=== PATIENT | female | born 1945 | race Hispanic/Latino ===

== ENCOUNTER → 2019-09-22 | Outpatient (CLI) | payer OTHER ==
[~2019-09-22] MED LIST: ASPI-1012 PO; Acetaminophen PO; CELE200 PO; CHOL100046 PO; CYAN250 PO; FISH1CAP27 PO; FOLI1TAB15 PO; LEVO500T2 PO; MEMA10TA55 PO; OXYC5 PO; PREG25 PO; SIMV10TA97 PO
== END | disposition home or self-care (01) ==
LOC: RAH 09:27
PROVIDERS: ATTEND Internal Medicine Cardiovascular Disease
DX: Z13.6 Encounter for screening for cardiovascular disorders (principal)
CPT/HCPCS: 75571

== ENCOUNTER → 2021-09-05 | Outpatient (CLI) | payer MEDICARE ==
[~2021-09-05] MED LIST changes: -CYAN250 PO; +CYAN250T3 PO; +IOHEXOL-350 50ML VIAL IV ONE
== END | disposition home or self-care (01) ==
LOC: OIH 08:16
PROVIDERS: ATTEND Internal Medicine Cardiovascular Disease
DX: I73.9 Peripheral vascular disease, unspecified (principal)
CPT/HCPCS: 75635; Q9967 ×2

== ENCOUNTER → 2021-12-07 | Outpatient (CLI) | payer MEDICARE ==
[~2021-12-07] MED LIST changes: +ACET-2743 PO; +ALBUHFA IH; +ASPI-1197 PO; -Acetaminophen PO; -CELE200 PO; -CHOL100046 PO; -CYAN250T3 PO; +DOCU-116 PO; +FAMO-136 PO; +FERS325 PO; -FISH1CAP27 PO; +FLUT1BLS3 IH; +FOLI0.4T6 PO; -FOLI1TAB15 PO; +ICOS0.5C PO; -IOHEXOL-350 50ML VIAL IV ONE; -LEVO500T2 PO; +MELA3TAB43 PO; -MEMA10TA55 PO; -OXYC5 PO; -PREG25 PO; +SERT-438 PO; -SIMV10TA97 PO
== END | disposition home or self-care (01) ==
LOC: RAH 13:12
PROVIDERS: ATTEND Family Medicine
DX: M86.00 Acute hematogenous osteomyelitis, unspecified site (principal)
CPT/HCPCS: 72195

== ENCOUNTER → 2023-04-26 | Outpatient (CLI) | payer MEDICARE | END | disposition home or self-care (01) | LOC: SHCH 12:22 | PROVIDERS: ATTEND Internal Medicine Cardiovascular Disease | DX: I87.2 Venous insufficiency (chronic) (peripheral) (principal) | CPT/HCPCS: 93970 ==